=== PATIENT | female | born 2000 | race African-American/Black ===

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

== ENCOUNTER 2018-04-05 21:11 | Emergency (ER) | payer MEDICAID ==
[~2018-04-05] VITALS: Ht 162.6 cm; Wt 63.5 kg
[2018-04-05 21:35] VITALS: BP 123/84
[2018-04-05] MEDS ORDERED: Acetaminophen 500mg (ES) tab ORAL ONE (21:45)
[2018-04-05] MEDS ORDERED: CEPHALEXIN500 MG ORAL (22:31)
[2018-04-05] MEDS ORDERED: TYLENOL EXTRA500 MG ORAL (22:31)
[2018-04-05 22:47] VITALS: BP 114/66
--- NOTE | 2018-04-06 00:13 | Emergency Room Report ---
History of Present Illness General Chief Complaint: Chest Pain Source: Patient Present Illness HPI 18-year-old female presents ED complaining of chest pain 2 months. Pain is midsternal, 8 out of 10, sharp, radiated to the right arm and right side of neck. Worse with deep breaths. Denies smoking or drug use. Denies leg swelling or calf swelling. Patient also complaining of pain and swelling to her left pinky for 3 days. Throbbing, 8 out of 10, nonradiating. No other aggravating relieving factors. Denies any other associated symptoms Allergies: Coded Allergies: NO KNOWN DRUG ALLERGIES (Unverified Allergy, Unknown, 12/18/14) Patient History Past Medical History: psych hx Pertinent Family History: none Social History: Denies: smoking, alcohol use, drug use Last Menstrual Period: 03/30/18 Now: No : 0 Para: 0 Immunizations: UTD Reviewed Nursing Documentation: PMH: Agreed; PSxH: Agreed Nursing Documentation-PMH Hx Asthma: Yes History Of Psychiatric Problem: Yes - Depression, anxiety, PTSD Hx Neurological Problems: Yes - OCD, SOCIAL-ANXIETY D/O, DEPRESSION, GENERALIZED ANXIETY D/O, RHEUMA ARTH. Review of Systems All Other Systems: negative except mentioned in HPI Physical Exam Vital Signs Date Time Temp Pulse Resp B/P (MAP) Pulse Ox O2 Delivery O2 Flow Rate FiO2 04/05/18 21:16 98.2 86 18 107/74 98 Room Air 98.2 Sp02 EP Interpretation: reviewed, normal General Appearance: no apparent distress, alert, GCS 15, non-toxic Head: normocephalic Eyes: bilateral eye normal inspection, bilateral eye PERRL ENT: normal ENT inspection Neck: normal inspection Respiratory: lungs clear, normal breath sounds, speaking full sentences, other - reproducible midsternal pain Cardiovascular #1: regular rate, rhythm, no edema Gastrointestinal: normal inspection Rectal: deferred Genitourinary: no CVA tenderness Musculoskeletal: swelling - distal aspect L 5th finger. no fluctuance. no discharge Neurologic: alert, oriented x3, responsive, motor strength/tone normal, sensory intact, speech normal Psychiatric: normal inspection Skin: normal inspection Lymphatic: normal inspection Medical Decision Making Diagnostic Impression: Primary Impression: Cellulitis of finger Qualified Codes: L03.012 - Cellulitis of left finger Additional Impression: Chest wall pain ER Course Hospital Course 18 yo F presents c/o chest pain x 2 months Differential diagnoses include: Rib fracture, TX/unstable angina, contusion, muscle strain Clinical course Patient placed on stretcher. After initial history, physical exam reveals young female in no acute distress. There is reproducible pain to the sternum on exam. Lungs clear. There is some mild swelling to the distal aspect of the left fifth finger with some erythema. No fluctuance or discharge EKGnormal sinus rhythm no acute ischemic changes interpreted by me She has no cardiac risk factors. Vital stable.Concern for drug use. clinical findings consistent with muscle strain/costochondritis. Reassurance given. Patient given tylenol for pain. I. I feel this is a highly complex case requiring extensive working including EKG/Rhythm strip, Xray/CT/US, Blood/urine lab work, repeat exams while in ED, and administration of strong opiates/narcotics for pain control, admission to hospital or close patient follow up. Diagnosis - chest wall pain, cellulitis of finger Stable and discharged to home with prescription for tylenol, keflex. Instructed to followup with PMD. Return to ED if symptoms recur or worsen my chest wall pain shortness EKG Diagnostic Results Rate: normal Rhythm: NSR ST Segments: no acute changes ASA given to the pt in ED: No Rhythm Strip Diag. Results EP Interpretation: yes Rhythm: NSR, no PVC's, no ectopy Last Vital Signs Date Time Temp Pulse Resp B/P (MAP) Pulse Ox O2 Delivery O2 Flow Rate FiO2 04/05/18 22:47 98.3 74 16 114/66 100 Room Air Status: improved Disposition: HOME, SELF-CARE Condition: Stable Scripts Cephalexin* (KEFLEX*) 500 Mg Capsule 500 MG ORAL EVERY 6 HOURS for 7 Days, CAP Prov: Michael Hernandez MD 04/05/18 Acetaminophen* (TYLENOL EXTRA STRENGTH*) 500 Mg Tablet 500 MG ORAL Q8H PRN for Prn Headache/Temp > 101, #30 TAB 0 Refills Prov: Michael Hernandez MD 04/05/18 Patient Instructions: Chest Wall Pain, [id number] Michael Hernandez MD Apr 06, 2018 00:13
== END 2018-04-05 22:55 | disposition home or self-care (01) ==
LOC: EMR 21:35
DX: R07.89 Other chest pain (principal); L03.012 Cellulitis of left finger; F32.9 Major depressive disorder, single episode, unspecified; F41.9 Anxiety disorder, unspecified; F43.10 Post-traumatic stress disorder, unspecified; F42.9 Obsessive-compulsive disorder, unspecified; M06.9 Rheumatoid arthritis, unspecified; J45.909 Unspecified asthma, uncomplicated
CPT/HCPCS: 93005; 99283